=== PATIENT | male | born 1950 | race Caucasian/White ===

== ENCOUNTER 2016-10-06 08:27 | Inpatient (IN) | payer OTHER ==
[2016-09-28 15:40] LABS: % IMMATURE GRANULYOCYTES 0.3 % (0.0-1.1); ABSOLUTE IMMATURE GRANULOCYTES 0.03 10^3/uL (0.00-0.10); ADD DIFF? NO; ADD MORPH? NO; ADD SCAN? NO; ATYPICAL LYMPHOCYTE FLAG 30 (0-99); FRAGMENT RBC FLAG 0 (0-99); HEMATOCRIT 50.2 % (40.0-51.0); HEMOGLOBIN 17.8 g/dL (13.7-17.5); LEFT SHIFT FLG 0 (0-99); LIPEMIA HEMOLYSIS FLAG 90 (0-99); MEAN CELL HEMOGLOBIN 31.1 pg (27.9-34.1); MEAN CELL HEMOGLOBIN CONCENTR. 35.5 g/dL (32.4-36.7); MEAN CELL VOLUME 87.6 fL (81.5-99.8); MEAN PLATELET VOLUME 9.9 fL (8.7-11.7); PLATELET CLUMPS FLAG 10 (0-99); PLATELET COUNT 226 10^3/uL (150-400); RED BLOOD CELL COUNT 5.73 10^6/uL (4.40-6.38); RED CELL DISTRIBUTION WIDTH 12.4 % (11.5-15.2)
[2016-09-28 16:15] LABS: ANION GAP 12 mEq/L (8-16); CALCIUM 10.1 mg/dL (8.5-10.4); CARBON DIOXIDE 28 mEq/l (22-31); CHLORIDE 97 mEq/L (97-110); CREATININE 1.1 mg/dL (0.7-1.3); GLOMERULAR FILTRATION RATE > 60; GLUCOSE 91 mg/dL (70-100); POTASSIUM 4.4 mEq/L (3.5-5.2); SODIUM 137 mEq/L (134-144)
[~2016-10-06 08:27] MED LIST: BACITRACIN 50,000 UNITS/10 ML SYR IRR ONE; BUPIVACAINE/EPI 0.5% 30 ML SDV ONE; CALCIUM CHLORIDE 1 GM/10 ML INJ ONE; LIDOCAINE 2% 5 ML SDV ONE; MIDAZOLAM 2 MG/2 ML VIAL ONE; POLYMYXIN B SULFATE 500,000 UNIT/10 ML SYR IRR ONE; PROPOFOL/EMULSION 500 MG/50 ML BOTTLE IV ONE; ROPIVACAINE HCL 150 MG/30 ML INJ ONE; THROMBIN (RECOMBINANT) 5,000 UNIT VIAL TP ONE
[2016-10-06] MEDS ORDERED: LIDOCAINE 1% 5 ML SDV ID PRN (08:42)
[2016-10-06] MEDS ORDERED: LR 1,000 ML IV ONE (08:42)
[2016-10-06] MEDS ORDERED: LIDOCAINE 1% 5 ML SDV ONE (08:46)
[2016-10-06] MEDS ORDERED: CEFAZOLIN 2 GM/DEXTR 100 ML IV ONE (09:00)
[2016-10-06] MEDS ORDERED: DEXAMETHASONE 4 MG/ML VIAL IVP ONE (09:00)
[2016-10-06] MEDS ORDERED: FAMOTIDINE 20 MG TAB PO ONE (09:00)
[2016-10-06] MEDS ORDERED: ROPI/epiNEPH/KETOROLAC/morphINE JOINT COCKTAIL IU ONE (09:00)
[2016-10-06] MEDS ORDERED: CHLORHEXIDINE GLUC HIBICLENS 118 ML BTL TP ONE (09:00)
[2016-10-06] MEDS ORDERED: ACETAMINOPHEN 325 MG TAB PO ONE (09:00)
--- NOTE | 2016-10-06 11:53 | POSTOPPROG ---
Post Op Note Date of Operation: 10/06/16 Surgeon: Kavya Chinchilla Legal Entity Controller: [employer]train Anesthesiologist: yonny Anesthesia: Epidural Pre-op Diagnosis: r knee oa Procedure: r tkr Inf/Abcess present in the surg proc area at time of surgery?: No Depth: Deep Incisional (Fascial) EBL: 100-500
[2016-10-06] MEDS ORDERED: PHARMACY PAIN CONSULT 1 EA MISC PRN (11:54)
[2016-10-06] MEDS ORDERED: PROMETHAZINE HCL 25 MG SUPPR PR PRN (11:54)
[2016-10-06] MEDS ORDERED: PROMETHAZINE HCL 25 MG/ML INJ IVP PRN (11:54)
[2016-10-06] MEDS ORDERED: BISACODYL 10 MG SUPP PR PRN (11:54)
[2016-10-06] MEDS ORDERED: METOCLOPRAMIDE 10 MG/2 ML VIAL IVP PRN (11:54)
[2016-10-06] MEDS ORDERED: LACTULOSE 20 GM/30 ML UDCUP PO PRN (11:54)
[2016-10-06] MEDS ORDERED: POLYETHYLENE GLYCOL 3350 17 GM PKT PO PRN (11:54)
[2016-10-06] MEDS ORDERED: TEMAZEPAM 15 MG CAP PO PRN (11:54)
[2016-10-06] MEDS ORDERED: MAGNESIUM HYDROXIDE 30 ML UDCUP PO PRN (11:54)
[2016-10-06] MEDS ORDERED: ONDANSETRON DISINTEGRATING 4 MG TAB PO PRN (11:54)
[2016-10-06] MEDS ORDERED: TAPENTADOL HCL 50 MG TAB PO PRN (11:54)
[2016-10-06] MEDS ORDERED: CYCLOBENZAPRINE 10 MG TAB PO PRN (11:54)
[2016-10-06] MEDS ORDERED: ONDANSETRON 4 MG/2 ML VIAL IVP PRN (11:54)
[2016-10-06] MEDS ORDERED: diphenhydrAMINE 25 MG CAP PO PRN (11:54)
[2016-10-06] MEDS ORDERED: DIPHENOXYLATE/ATROPINE LOMOTIL 1 TAB PO PRN (11:54)
[2016-10-06] MEDS ORDERED: LR 1,000 ML IV SCH (12:00)
[2016-10-06] MEDS ORDERED: KETOROLAC 30 MG/1 ML SDV ONE (12:12)
--- NOTE | 2016-10-06 13:18 | GOP ---
DATE OF OPERATION: 10/06/2016 SURGEON: Kavya Chinchilla MD DEPUTY INSURANCE COMMISSIONER: YVONNE Espinal, LSA, whose presence was medically necessary. ANESTHESIA: Epidural nerve block. PREOPERATIVE DIAGNOSIS: Right knee osteoarthritis. POSTOPERATIVE DIAGNOSIS: Right knee osteoarthritis. PROCEDURE PERFORMED: Right total knee arthroplasty. FINDINGS: INDICATIONS: This is a 66-year-old male with a very long history of right knee pain, worsening with use over time, despite multiple conservative measures. MRI revealed severe osteoarthritic changes medially but relative sparing at the patellofemoral and lateral compartments. He was hoping to do a partial knee replacement but the final decision will be made once inside the knee. DESCRIPTION OF PROCEDURE: Patient brought to the operating room after the right side had been ident ified as the correct side by the patient, nurse and physician. Once in the operating room, he was g iven an epidural nerve block, then placed supine on the operating room table. He had tourniquet nacho titus around the upper portion of the right thigh and the right lower extremity was sterilely prepped and draped in the usual fashion using GSI solution. Once prepped and draped, limb was exsanguinated and tourniquet inflated to 250 mmHg. An incision was made on the anterior portion of the knee starting at the superior pole of the patell a and extending through the tibial tubercle with sharp dissection carried down through the skin and subcutaneous layers, identifying the extensor mechanism below. Bleeding was controlled using electr ocautery. Medial parapatellar incision was made with the patella brought to the side. He was noted to have severe osteoarthritic changes to the medial compartment and significant grade 3 and one are a of grade 4 chondral changes to the trochlea. It was, therefore, decided to proceed with a total k nee replacement instead of partial knee replacement. Therefore, the incision was extended superiorl y, approximately 1 handbreadth above the patella with sharp dissection carried down through the skin and subcutaneous layers. Bleeding controlled using electrocautery. An extensor mechanism incision was extended into the quadriceps tendon with the patella brought to the side but not everted. The medial and lateral meniscus, along with the ACL, were removed. The knee was brought to 90 degrees o f flexion. A drill hole was made 1 cm anterior to the intercondylar notch with measured g uide placed within the femoral component. The femoral cutting guide was set to remove 10 mm of bone . It was set at 5 degrees of valgus. Once pinned into place, the intramedullary guide was removed. An oscillating saw was used to remove this portion of the femur. Once achieving flat surface, pin s were removed. Cartilage was taken off the posterior condyles of the femur. A sizing guide was pu t in place, noting a size 6 seemed to fit best without notching the anterior cortex. Then 4 drill h oles were made and a size 6, 4-in-1 cutting block was put in place. The anterior-posterior chamfer cuts were made. A size 6 trial was put into place, noted to fit securely, achieving full extension across the knee. Therefore, the femoral component was centered and lug holes were drilled for the f emoral component. The trial component was then removed. The knee was brought to maximal flexion with the tibia subluxed anteriorly. An external tibial guid e was put into place, set to remove 4 mm of bone from the low side of the tibia. It was set in neut ral varus valgus, in slight posterior slope. Once pinned into place, a drop faith was used to ensure adequate alignment. Locking pin was then put in place. Oscillating saw was used to remove the prox imal portion of the tibia. A trial femoral component, tibial component, and poly liner was put into place. The knee was able to achieve full extension, suggesting adequate removal of bone. Therefor e, the trials were removed. The knee brought back to maximal flexion. The tibia subluxed anteriorl y. Multiple trials were placed on the tibia and noted that a size 5 seemed to fit best. It was nacho titus in slight external rotation, pinned into place, and a keel punch passed through the guide into t he proximal tibia. Once trials were all removed, the knee was brought to full extension. The summers la was then everted, measured to be 28 mm in thickness. Oscillating saw was used to remove the post erior portion of the patella, then multiple sizers were placed on the cut surface of bone. Noted a 33 mm button seemed to fit best, and lug holes were drilled for a 33 mm button. All cut surfaces of bone were then thoroughly irrigated with antibiotic solution using pulsatile lavage while cement wa s being mixed. Once cement was doughy, it was placed on the proximal end of the tibia with a size 5 triathlon tibial baseplate from [employer] put into place and excess cement removed using [place] elevat ors. Cement was then placed on the posterior skids of the femoral component with cement placed on t he distal anterior portions of the bone. A size 6 right cruciate retaining triathlon femoral compon ent from [place] was put into place with excess cement removed using a [place] elevator with a trial l iner placed in the tibial tray. The knee was brought to full extension. Cement was then placed on the cut surfaces of the patella with a 33 mm patellar button clamped into place and excess cement re moved using [place]ne elevator. Once the cement had hardened, trial liner was removed from the tibial t ray. Any excess cement found was removed using a combination of osteotome and rongeur. Multiple tr ials were placed, and the tibial tray noted a 13 mm liner seemed to fit best. Therefore, a 13 mm po lyethylene liner was chosen and locked in the tibial tray. Once completed, the tourniquet was defla krish at 60 minutes. Bleeding was again controlled using electrocautery. Joint cocktail was then inj ected around the periosteum of the femur, the tibia, and the posterior capsule. The wound was then closed using 0 Vicryl suture in exrggm-sh-ozeiy-type stitch for the extensor mech anism with plasma gel placed intra-articularly. Vicryl 0 and 2-0 Vicryl suture was used to close th e subcutaneous layers with plasma gel placed externally extensor mechanism and a 3-0 V-Loc suture in a running subcuticular stitch was used to close the skin. The wound was dressed with Steri-Strips, Xeroform, 4x4s, wrapped in Kerlix. The leg was completely undraped in the operating room, tourniqu et removed from the thigh and, an Anam wrap placed around the knee. [facility] and sent to recovery room in good condition. TOURNIQUET TIME: 60 minutes. /[id number]/MODL
[2016-10-06] MEDS: ACETAMINOPHEN 325 MG TAB PO SCH ×3 (13:39→23:07)
[2016-10-06] MEDS: KETOROLAC 30 MG/1 ML SDV IVP SCH ×3 (13:40→23:08)
[2016-10-06] MEDS: traMADol 50 MG TAB PO SCH ×3 (13:41→23:08)
[2016-10-06] MEDS ORDERED: ceFAZolin 2 GM/DEXTROSE 100 ML IV SCH (17:00)
[2016-10-06] MEDS: ceFAZolin 2 GM in D5W 100 ML IV SCH (18:35)
[2016-10-06] MEDS: oxyCODONE IR 5 MG TAB PO PRN (19:57)
[2016-10-06] MEDS: FAMOTIDINE 20 MG TAB PO SCH (19:58)
[2016-10-06] MEDS: SENNOSIDES/DOCUSATE SODIUM TAB PO SCH (19:59)
[2016-10-06] MEDS ORDERED: traZODone 100 MG TAB PO SCH (21:00)
[2016-10-06] MEDS ORDERED: NON-FORMULARY NEW DRUG (Simvastatin [Zocor] 40 MG) PO SCH (21:00)
[2016-10-06] MEDS ORDERED: ATORVASTATIN CALCIUM 20 MG TAB PO SCH (21:00)
[2016-10-06] MEDS ORDERED: LIDOCAINE 2% JELLY 20 ML (UROJECT) UR ONE (23:30)
[2016-10-06] MEDS: TAMSULOSIN HCL 0.4 MG CAP PO SCH (23:39)
[2016-10-07] MEDS: ceFAZolin 2 GM in D5W 100 ML IV SCH (02:21)
[2016-10-07] MEDS: oxyCODONE IR 5 MG TAB PO PRN ×2 (02:25→08:50)
[2016-10-07] MEDS: traMADol 50 MG TAB PO SCH ×2 (05:28→11:51)
[2016-10-07] MEDS: ACETAMINOPHEN 325 MG TAB PO SCH ×2 (05:28→11:51)
[2016-10-07] MEDS: KETOROLAC 30 MG/1 ML SDV IVP SCH ×2 (05:28→11:50)
[2016-10-07 05:56] LABS: HEMATOCRIT 36.2 % (40.0-51.0); HEMOGLOBIN 12.7 g/dL (13.7-17.5)
[2016-10-07 08:25] VITALS: BP 127/82; PULSE 78; RESP 14; TEMP 97.8; O2SAT 94
[2016-10-07] MEDS: SENNOSIDES/DOCUSATE SODIUM TAB PO SCH (08:50)
[2016-10-07] MEDS: TAMSULOSIN HCL 0.4 MG CAP PO SCH (08:51)
[2016-10-07] MEDS: FAMOTIDINE 20 MG TAB PO SCH (08:51)
[2016-10-07] MEDS ORDERED: RIVAROXABAN 10 MG TAB PO SCH (09:00)
--- NOTE | 2016-10-07 10:31 | PDIAF ---
- Diagnosis Code Status: Full Code - Medication Management Discharge Medications: Medications to Continue on Transfer Aspirin [Aspirin 81mg (*)] 81 mg PO HS 09/11/16 [Last Taken 09/29/16] HYDROcodone/APAP 10/325 [[place] 10/325 (*)] 1 tab PO Q6H PRN 09/11/16 [Last Taken 10/04/16] Simvastatin [Zocor] 40 mg PO HS 09/11/16 [Last Taken 10/04/16] Triamterene [Dyrenium 50MG (*)] 75 mg PO HS 09/11/16 [Last Taken 10/04/16] traZODone [traZODONE 100MG (*)] 200 mg PO HS 09/11/16 [Last Taken 10/05/16] Discharge Medications: Refer to the Discharge Home Medication list for PRN reason. PICC Care - Routine: N/A - Orders Services needed: Physical Therapy - Follow Up Care Current Providers and Referrals: [facility] [Primary Care Provider] -
--- NOTE | 2016-10-07 10:31 | SOAPPROG ---
SOAP Progress Note Assessment/Plan: Assessment: Plan: -d/c home 10/07/16 10:30 Subjective: Doing well, would like to go home Objective: Vital Signs Temp Pulse Resp BP Pulse Ox 36.6 C 78 14 127/82 H 94 10/07/16 08:23 10/07/16 08:23 10/07/16 08:23 10/07/16 08:23 10/07/16 08:23 Laboratory Results 10/07/16 05:05 09/28/16 15:26 10/06/16 10/07/16 10/08/16 05:59 05:59 05:59 Intake Total 2380 Output Total 1750 Balance 630 Dressing CDI, calf NT, neg Hom[place] compartment soft - Time Spent With Patient Time Spent With Patient: 10 - Pending Discharge Pending Discharge Within 24 Hours: Yes Pending Discharge Within 48 Hours: No Pending Discharge Date: 10/08/16 Pending Discharge Time: 11:00 ICD10 Worksheet Patient Problems: Problems Problem Status Onset Arthritis of right knee Acute - ICD10 Problem Qualifiers (1) Arthritis of right knee
== END 2016-10-07 14:00 | disposition home health service (06) | DRG 470 ==
LOC: F3N 08:27
PROVIDERS: ADMIT Orthopaedic Surgery; ATTEND Orthopaedic Surgery
PROC: 0SRC0J9 Replacement of Right Knee Joint with Synthetic Substitute, Cemented, Open Approach (ICD-10-PCS; principal; 2016-10-06 10:15)
DX: M17.11 Unilateral primary osteoarthritis, right knee (principal); I10 Essential (primary) hypertension; E78.00 Pure hypercholesterolemia, unspecified
CPT/HCPCS: 97116-GP; 97161-GP; 97165-GO; C1713; J0171; J0690; J1100; J1885; J2250; J2704; J2795; L1832